=== PATIENT | female | born 1965 | race Caucasian/White ===

== ENCOUNTER 2018-09-27 23:17 | Emergency (ER) | payer BC, OTHER ==
[~2018-09-27] VITALS: Ht 157.5 cm; Wt 91.6 kg
[~2018-09-27 23:17] MED LIST: IBUP-974 PO
[2018-09-27 23:22] VITALS: BP 179/82
--- NOTE | 2018-09-27 23:35 | NUR ---
EKG PROVIDED TO PT IN TRIAGE AT THIS TIME.
--- NOTE | 2018-09-27 23:42 | NUR ---
PT AMBULATED BACK TO LOBBY.
--- NOTE | 2018-09-27 23:50 | NUR ---
PT AMBULATED TO BED #11
--- NOTE | 2018-09-27 23:54 | NUR ---
Patient ambulated to bed 4. RN evaluating patient at bedside.
[2018-09-28] MEDS ORDERED: ASPIRIN 81 MG TAB.CHEW PO ONE
[2018-09-28] MEDS ORDERED: NACL 0.9% 1,000 ML IV ONE
--- NOTE | 2018-09-28 00:05 | NUR ---
PATIENT PRESENTS ER WITH C/O CHEST PAIN SINCE THIS MORNING. PT STATES SHE FEELS TIRED, FATIGUE, WITH CHEST PRESSURE. PT ALSO STATES SHE HAS A FERNANDEZ. PATIENT STATES PAIN OF 7/10 AT THIS TIME; LUNG SOUNDS CLEAR BILATERAL.PT IS A/O X4. FAMILY AT BEDSIDE. VSS; PATIENT POSITIONED FOR COMFORT; HOB ELEVATED; BEDRAILS UP X2; BED DOWN. ER MD MADE AWARE OF PT STATUS.
--- NOTE | 2018-09-28 00:05 | NUR ---
line maintenance technician at bedside.
--- NOTE | 2018-09-28 00:34 | NUR ---
Dr. Munoz evaluating patient at bedside.
[2018-09-28 00:39] LABS: BASOPHILS # (AUTO) 0.1 K/uL (0.00-0.22); BASOPHILS % (AUTO) 0.7 % (0.0-2.0); EOSINOPHILS # (AUTO) 0.1 K/uL (0-0.4); EOSINOPHILS % (AUTO) 0.9 % (0.0-4.0); HEMATOCRIT 42.9 % (36-48); HEMOGLOBIN 14.3 g/dL (12.0-16.0); LYMPHOCYTES # (AUTO) 2.4 K/uL (2.5-16.5); LYMPHOCYTES % (AUTO) 34.4 % (20.5-51.1); MEAN CORPUSCULAR HEMOGLOBIN 28 pg (27-31); MEAN CORPUSCULAR HGB CONC 33 g/dL (33-37); MEAN CORPUSCULAR VOLUME 83.9 fL (80-94); MONOCYTES # (AUTO) 0.5 K/uL (0.8-1.0); MONOCYTES % (AUTO) 7.8 % (1.7-9.3); NEUTROPHILS # (AUTO) 3.9 K/uL (1.8-7.7); NEUTROPHILS % (AUTO) 56.2 % (42.2-75.2); PLATELET COUNT (AUTO) 264 K/uL (140-450); RED BLOOD CELL COUNT(AUTO) 5.11 MIL/uL (4.20-5.40); RED CELL DISTRIBUTION WIDTH 14.2 % (11.6-13.7); WHITE BLOOD COUNT (AUTO) 6.9 K/uL (4.8-10.8)
[2018-09-28 00:42] LABS: ANION GAP 14.5 (8-16); CARBON DIOXIDE 25.9 mmol/L (21-32); POTASSIUM 3.4 mmol/L (3.5-5.1)
[2018-09-28 00:47] LABS: PROTHROMBIN TIME 9.8 secs (10.8-13.4)
[2018-09-28 00:48] LABS: TOTAL BILIRUBIN 0.5 mg/dL (0.0-1.0)
[2018-09-28 01:21] VITALS: BP 159/75
== END 2018-09-28 01:21 | disposition home or self-care (01) ==
LOC: MED 23:17
DX: R07.89 Other chest pain (principal); R51 Headache; Z79.1 Long term (current) use of non-steroidal anti-inflammatories (NSAID)
CPT/HCPCS: 36415; 71045; 80053; 84484; 85025; 85610; 85730; 99284; Q0092; 93005